=== PATIENT | female | born 1985 | race African-American/Black ===

== ENCOUNTER 2017-07-16 03:00 | Emergency (ER) | payer SELFPAY ==
[2017-07-16] MEDS ORDERED: Ketorolac Tromethamine 30 MG/ML VIAL ONE (03:13)
[2017-07-16] MEDS ORDERED: Morphine 10 MG/ML VIAL ONE (04:15)
[2017-07-16 08:23] LABS: PTT 30.1 SEC (22.9-36.1)
[2017-07-16 08:24] LABS: #Basophils 0.1 thou/uL (0.0-0.2); #Eosinphils 0.1 thou/uL (0.0-0.7); #Lymphocytes 2.3 thou/uL (1.20-3.40); #Monocytes 0.5 thou/uL (0.11-0.59); #Neutrophils 3.6 thou/uL (1.40-6.50); %Basophils 1.1 % (0.0-1.0); %Eosinophils 2.1 % (0.0-10.0); %Lymphocytes 35.1 % (21.0-51.0); %Monocytes 7.1 % (0.0-10.0); %Neutrophils 54.6 % (42.0-75.0); Hemoglobin 13.4 g/dL (12.0-16.0); Mean Corpuscular HGB CONC 32.7 g/dL (32.0-36.0); Mean Corpuscular Volume 79.4 fL (81.0-99.0); Mean Platelet Volume 9.7 fL (7.4-10.4); Platelet Count 160 thou/uL (130-400); RBC Distribution Width 14.9 % (11.5-14.5); Red Blood Cell (RBC) Count 5.18 mill/uL (4.20-5.40)
[2017-07-16 08:26] LABS: White Blood Cell (WBC) Count 6.6 thou/uL (4.8-10.8)
[2017-07-16 08:28] LABS: BUN (Urea Nitrogen) 9 mg/dL (7.0-18.7); Calc. Creatinine Clearance 0 mL/min (70-130); Carbon Dioxide 27 mmol/L (22-29); Chloride 104 mmol/L (98-107); Estimated GFR-MDRD 71; Potassium 3.5 mmol/L (3.5-5.1); Prothrombin Time 13.9 SEC (12.0-14.7); Sodium 141 mmol/L (136-145)
[2017-07-16 08:29] LABS: ALT (SGPT) 12 U/L (8-55); AST (SGOT) 19 U/L (5-34); Albumin 4.1 g/dL (3.5-5.0); Alkaline Phosphatase 45 U/L (40-150); Calcium 9.8 mg/dL (7.8-10.44); Globulin 3.2 g/dL (2.4-3.5); Glucose 98 mg/dL (70-105); Protein, Total 7.3 g/dL (6.0-8.3)
[2017-07-16 08:30] LABS: Anion Gap 14 mmol/L (10-20)
[2017-07-16] MEDS ORDERED: Sodium Chloride 0.9% 1,000 ML BAG ONE (08:43)
--- NOTE | 2017-07-16 08:57 | CT ---
PRELIMINARY REPORT/[facility]/EMERGENTY AFTER-HOURS PROCEDURE CT Abdomen and Pelvis With Intravenous Contrast CLINICAL HISTORY: 31 years old, female; Pain; Abdominal pain; Flank; Left lower quadrant (llq); Patient HX: No HX. Pain to lt side of abdomen TECHNIQUE: Axial computed tomography images of the abdomen and pelvis with intravenous contrast. All CT scans at this facility use one or more dose reduction techniques, viz.: automated exposure control; ma/kV adjustment per patient size (including targeted exams where dose is matched to indication; i.e. head); or iterative reconstruction technique. CONTRAST: 95 mL of isovue administered intravenously. COMPARISON: No relevant prior studies available. FINDINGS: Lung bases: Unremarkable. No mass. No consolidation. ABDOMEN: Liver: Unremarkable. No mass. Gallbladder and bile ducts: Unremarkable. No calcified stones. No ductal dilation. Pancreas: Unremarkable. No mass. No ductal dilation. Spleen: Unremarkable. No splenomegaly. Adrenals: Unremarkable. No mass. Kidneys and ureters: Unremarkable. No solid mass. No hydronephrosis. Stomach and bowel: Air-fluid levels in the small bowel with mild prominence. No definite transition p oint. Moderate stool in the colon Appendix: No findings to suggest acute appendicitis. PELVIS: Bladder: Partially decompressed Reproductive: Prior tubal ligation. Prominent parametrial collateral channels/mild dilatation of the left gonadal vein. Question mild endometrial thickening ABDOMEN and PELVIS: Intraperitoneal space: Unremarkable. No free air. No significant fluid collection. Bones/joints: No acute fracture. No dislocation. Soft tissues: Unremarkable. Vasculature: Unremarkable. No abdominal aortic aneurysm. Lymph nodes: Unremarkable. No enlarged lymph nodes. IMPRESSION: Question mild ileus secondary to constipation Prominent parametrial veins and mild dilatation of the left gonadal vein. Correlate for pelvic congestion syndrome Question mild endometrial thickening. Further evaluation with pelvic ultrasound as clinically indicat ed Thank you for allowing us to participate in the care of your patient. Dictated and Authenticated by: Zackery Gibbs MD 07/16/2017 5:33 AM Central Time ([place] & [place]) FINAL REPORT EMERGENCY AFTER HOURS CT ABDOMEN AND PELVIS WITH CONTRAST: Date: 07/16/17 FINDINGS/IMPRESSION: I agree with the findings and impression given in the preliminary report per [facility] physician. 1. There is no evidence of acute intraabdominal/pelvic abnormality. 2. There is prominence of the venous structures along pelvic side pompa. This may be normal for the patient but could also be secondary to pelvic venous congestion syndrome. POS: [facility]
[2017-07-16] MEDS ORDERED: Iopamidol 370 76% 100 ML VIAL ONE (11:37)
== END 2017-07-16 06:38 | disposition home or self-care (01) ==
LOC: MADERS 03:00
DX: N93.8 Other specified abnormal uterine and vaginal bleeding (principal); F17.210 Nicotine dependence, cigarettes, uncomplicated
CPT/HCPCS: 74177; 80053; 84702; 85025; 85610; 85730; 96361; 96374; 96375; J1885; J2270; J7050